=== PATIENT | female | born 1995 | race Caucasian/White ===

== ENCOUNTER 2019-02-10 12:08 | Emergency (ER) | payer OTHER ==
[2019-02-10 12:26] VITALS: BP 138/76
[2019-02-10] MEDS ORDERED: DEXAMETHASONE 10 MG/ML VIAL PO STA (13:18)
[2019-02-10] MEDS ORDERED: CHERRY SYRUP 10 ML UDC PO ONE (13:18)
--- NOTE | 2019-02-10 13:21 | ED Physician Documentation ---
PD HPI CHEST PAIN - Stated complaint Stated Complaint: SOA/CHEST PAIN - Chief complaint Chief Complaint: Cardiac - History obtained from History obtained from: Patient - History of Present Illness Timing - onset: Yesterday Timing - onset during: Light activity Timing - duration: Days (1) Timing - details: Abrupt onset, Still present Quality: Sharp, Pain Location: Left chest Radiation: No: Jaw, Neck, Back Improved by: Rest Worsened by: Inspiration, Movement, Palpation, Position Associated symptoms: No: Shortness of air, Diaphoresis, Nausea, Vomiting, Feeling faint / dizzy, General Weakness, Palpitations, Cough Similar symptoms before: No diagnosis Recently seen: Not recently seen - Additional information Additional information: 23-year-old female who occasionally has a sensation of a popping in her chest followed by soreness to her chest for several days was at work yesterday she reached for something and when she did she felt the pop in her chest she now has pain in her chest wall it is specifically tender she was asked by her work to come to the emergency department for evaluation. She states that in the past this is happened to her a number of times usually related to specific movements and usually takes as long as a week to get better. Review of Systems Constitutional: denies: Fever Eyes: denies: Decreased vision Ears: denies: Ear pain Nose: denies: Rhinorrhea / runny nose PD PAST MEDICAL HISTORY - Past Medical History Past Medical History: Yes - Past Surgical History Past Surgical History: Yes - Present Medications Home Medications: Ambulatory Orders Medication Instructions Recorded Confirmed RX: Ibuprofen [Ibu] 800 mg PO TID PRN #20 tablet 02/10/19 - Allergies Allergies/Adverse Reactions: Allergies Allergy/AdvReac Type Severity Reaction Status Date / Time No Known Drug Allergies Allergy Verified 02/10/19 12:25 - Social History Does the pt smoke?: No Smoking Status: Former smoker Does the pt drink ETOH?: Yes Does the pt have substance abuse?: No PD ED PE NORMAL - Vitals Vital signs reviewed: Yes (hypertensive mild ) - General General: Alert and oriented X 3, No acute distress, Well developed/nourished - HEENT HEENT: Atraumatic, PERRL, EOMI - Neck Neck: Supple, no meningeal sign, No bony TTP - Cardiac Cardiac: RRR, No murmur - Respiratory Respiratory: No respiratory distress, Clear bilaterally, Other (There is chest wall tenderness to the left parasternal chest ) - Abdomen Abdomen: Soft, Non tender - Back Back: No CVA TTP, No spinal TTP - Derm Derm: Normal color, Warm and dry, No rash - Extremities Extremities: No deformity, No edema - Neuro Neuro: Alert and oriented X 3, chefs 2-12 intact, No motor deficit, No sensory deficit, Normal speech Eye Opening: Spontaneous Motor: Obeys Commands Verbal: Oriented GCS Score: 15 - Psych Psych: Normal mood, Normal affect Results - Vitals Vitals: Vital Signs - 24 hr 02/10/19 12:14 Temperature 36.3 C L Heart Rate 91 Respiratory 16 Rate Blood Pressure 138/76 H O2 Saturation 99 Oxygen O2 Source Room air - EKG (time done) 1221 Rate: Rate (enter#) (66) Rhythm: NSR Compare to prior EKG: Old EKG unavailable Computer interpretation: Disagree with computer (The computer calls q-waves anteriorly and clearly these are absent. ) - Rads (name of study) chest Radiology: Prelim report reviewed (Impression: Normal two-view chest radiography.), EMP read indepedently, See rad report PD MEDICAL DECISION MAKING - ED course Complexity details: reviewed results, re-evaluated patient, considered differential, d/w patient ED course: 23-year-old female with costochondritis and tenderness to the left costal sternal junction and she is administered dexamethasone and will use ibuprofen for treatment. She has had these symptoms happen to her previously usually within a 2 to 3-day period of time her symptoms are resolving. Departure - Departure Disposition: 01 Home, Self Care Clinical Impression: Costochondritis, acute Condition: Stable Instructions: ED Chest Pain Costochondritis Follow-Up: Alejandro Paez ARNP [Primary Care Provider] - Prescriptions: RX: Ibuprofen [Ibu] 800 mg PO TID PRN #20 tablet PRN Reason: Pain Forms: Activity restrictions Discharge Date/Time: 02/10/19 15:07
--- NOTE | 2019-02-10 14:34 | XRAY Report ---
Reason: chest pain left side Procedure Date: 02/10/2019 Accession Number: [id number] / [id number] Procedure: XR - Chest 2 View X-Ray CPT Code: 92590 FULL RESULT: EXAM: CHEST RADIOGRAPHY EXAM DATE: 02/10/2019 02:18 PM. CLINICAL HISTORY: Pain. COMPARISON: None. TECHNIQUE: 2 views. FINDINGS: Lungs/Pleura: Clear. No effusion or pneumothorax. Mediastinum: Heart and mediastinal contours are unremarkable. Upper lobe vessels not distended. Other: None. IMPRESSION: Normal 2-view chest radiography. [facility]
== END 2019-02-10 15:07 | disposition home or self-care (01) ==
LOC: ED 12:08
DX: M94.0 Chondrocostal junction syndrome [Tietze] (principal); Z87.891 Personal history of nicotine dependence
CPT/HCPCS: 71046; 93005; 99283; A9270

== ENCOUNTER 2019-05-06 07:55 | Outpatient (CLI) | payer OTHER ==
--- NOTE | 2019-05-06 13:38 | MRI Report ---
Reason: HEADACHE Procedure Date: 05/06/2019 Accession Number: [id number] / [id number] Procedure: MRI - Brain W/O CPT Code: FULL RESULT: MRI BRAIN WITHOUT CONTRAST INDICATION: 23-year-old female with new onset migraines. TECHNIQUE: 1. Sagittal T1 and coronal fat-saturated T2. 2. Axial T1 3D, FLAIR, T2* and DWI. COMPARISON: None. FINDINGS: The cerebellar tonsils are slightly low-lying and project into the foramen magnum. There is crowding at the foramen magnum, however, there is minimal if any descent of the tonsils below the plane of the foramen magnum and there is no evidence of a Chiari I malformation. Ventricular size is normal. Signal intensity of cortex and white matter appears normal throughout. There appear to be flow voids for the main intracranial arteries. No abnormal diffusion restriction is demonstrated. No evidence of an acute or chronic hemorrhage on T2*GRE sequence. No abnormal extra-axial fluid collection. No mass effect or midline shift. Very limited evaluation of the orbits reveals no gross pathology. There is mild mucosal thickening scattered throughout the ethmoid air cells. The paranasal sinuses are otherwise clear. There is no mastoid or middle ear effusion. IMPRESSION: Normal unenhanced brain MRI.
== END 2019-05-06 07:56 | disposition home or self-care (01) ==
LOC: DI 07:55
PROVIDERS: ATTEND Registered Nurse Diabetes Educator
DX: R51 Headache (principal)
CPT/HCPCS: 70551

== ENCOUNTER 2020-12-18 07:00 | Outpatient (CLI) | payer OTHER ==
[2020-12-18 21:45] LABS: CHLAMYDIA TRACHOMATIS DNA NEGATIVE (NEGATIVE); NEISSERIA GONORRHOEAE DNA NEGATIVE (NEGATIVE); TRICHOMONAS VAGINALIS DNA NEGATIVE (NEGATIVE)
[2020-12-18 22:16] LABS: BACTERIAL VAGINOSIS DNA NEGATIVE (NEGATIVE); CANDIDA GLABRATA DNA NEGATIVE (NEGATIVE); CANDIDA GROUP DNA NEGATIVE (NEGATIVE); CANDIDA KRUSEI DNA NEGATIVE (NEGATIVE); TRICHOMONAS VAGINALIS DNA NEGATIVE (NEGATIVE)
== END 2020-12-18 23:59 | disposition home or self-care (01) ==
LOC: LAB.R 07:00
PROVIDERS: ATTEND Obstetrics & Gynecology
DX: Z11.3 Encounter for screening for infections with a predominantly sexual mode of transmission (principal); N76.0 Acute vaginitis
CPT/HCPCS: 87491; 87591; 87661; 87801

== ENCOUNTER 2020-12-31 18:53 | Outpatient (CLI) | payer OTHER ==
--- NOTE | 2021-01-01 08:59 | Ultrasound Report ---
PROCEDURE: Pelvic Complete INDICATIONS: PRIMARY DYSMENORRHEA TECHNIQUE: Real-time transabdominal scanning was performed of the pelvic organs, with image documentation. The p atient declined further transvaginal ultrasound scanning. COMPARISON: None. FINDINGS: Uterus: Uterus is normal in size at 9.0 x 3.7 x 4.8 cm. Endometrium measures 6 mm in combined thick ness. IUD appears in appropriate position. Ovaries: Right ovary measures 3.7 x 1.9 x 3.3 cm. The left ovary measures 3.8 x 2.3 x 3.7 cm. Other: No free pelvic fluid. IMPRESSION: Appropriately positioned IUD. Reviewed by: Toby Yin MD on 01/01/2021 8:58 AM PDT Approved by: Toby Yin MD on 01/01/2021 8:58 AM PDT Station ID: [id number]
== END 2020-12-31 18:54 | disposition home or self-care (01) ==
LOC: DI 18:53
PROVIDERS: ATTEND Obstetrics & Gynecology
DX: Z97.5 Presence of (intrauterine) contraceptive device (principal)